=== PATIENT | female | born 1940 | race Caucasian/White ===

== ENCOUNTER 2021-09-17 11:52 | Emergency (ER) | payer BC ==
[~2021-09-17 11:52] MED LIST: AMLO5TAB4 PO; ASPI-862 PO; CYM30 PO; FENO160 PO; HYDR-3919 PO; ISOS30TA PO; LEVO100T9 PO; LOSA100T23 PO; METO-442 PO; PRAV80TA PO
--- NOTE | 2021-09-17 14:30 | NUR ---
MAde call out to ER and lobby - no answer [facility] by physician
--- NOTE | 2021-09-17 17:25 | NUR ---
made call out to ER and lobby - no answer. [facility]
== END 2021-09-17 17:25 | disposition left against medical advice (07) ==
LOC: SED 11:52
DX: N39.8 Other specified disorders of urinary system (principal); Z53.21 Procedure and treatment not carried out due to patient leaving prior to being seen by health care provider